=== PATIENT | female | born 1965 | race Caucasian/White ===

== ENCOUNTER 2018-02-14 14:56 | Emergency (ER) | payer SELFPAY ==
[~2018-02-14] VITALS: Ht 160 cm; Wt 135.0 kg
[~2018-02-14 14:56] MED LIST: MEDDOSEPAK PO; PERCOCET 5/325M1 TAB PO
[2018-02-14 16:34] LABS: HEMATOCRIT 21.8 % (37.0-47.0); IMMATURE GRANULOCYTES 0.7 % (0.0-5.0); MEAN CELL VOLUME 70.8 fL CALC (80.0-100.0); MEAN CORPUSCULAR HGB 18.2 pG CALC (26.0-32.0); MEAN CORPUSCULAR HGB CONC 25.7 g/L CALC (32.0-36.0); NEUT# 4.36 thou/uL (2.00-7.15); RED BLOOD COUNT 3.08 mill/uL (4.20-5.60); RED CELL DISTRI WIDTH 20.4 % (11.5-15.5)
[2018-02-14 16:38] LABS: ALBUMIN 3.7 g/dL (3.2-5.0); ALKALINE PHOSPHATASE 81 u/l (38-126); ANION GAP 13 (6-22 (CALC)); BILIRUBIN, TOTAL 0.6 mg/dL (0.0-1.4); BUN 15 mg/dL (7-17); BUN/CREATININE RATIO 26 (12-20 (CALC)); CARBON DIOXIDE 26 mmol/l (22-30); CHLORIDE 107 mmol/l (95-108); CREATININE 0.6 mg/dL (0.5-1.0); GFR > 60 ML/MIN (>=60 (CALC)); GFR FOR AFR.AMER. > 60 ML/MIN (>=60 (CALC)); POTASSIUM 4.5 mmol/l (3.5-5.1); SGOT/AST 22 u/l (14-36); SODIUM 142 mmol/l (137-146); TOTAL PROTEIN 6.7 g/dL (6.3-8.2)
[2018-02-14 16:46] LABS: HEMOGLOBIN 5.6 g/dl (12.0-16.0)
[2018-02-14 17:29] LABS: PROTHROMBIN TIME 10.1 SECONDS (9.0-12.5)
[2018-02-14 17:45] VITALS: BP 199/88
[2018-02-14 18:10] VITALS: BP 189/91
[2018-02-14 20:04] VITALS: BP 189/91
== END 2018-02-14 20:04 | disposition short-term general hospital (02) | DRG 812 ==
LOC: ED 14:56
PROVIDERS: Family Medicine
PROC: 30233N1 Transfusion of Nonautologous Red Blood Cells into Peripheral Vein, Percutaneous Approach (ICD-10-PCS; principal; 2018-02-14)
DX: D64.9 Anemia, unspecified (principal); I10 Essential (primary) hypertension; E11.9 Type 2 diabetes mellitus without complications
CPT/HCPCS: P9016